=== PATIENT | female | born 1940 | race Caucasian/White ===

== ENCOUNTER 2016-11-22 21:20 | Inpatient (IN) | payer MEDICAID, MEDICARE ==
[~2016-11-22] VITALS: Ht 162.6 cm; Wt 76.7 kg
[~2016-11-22 21:20] MED LIST: AMARYL2 MG PO; ASPIR 8181 M1 PO; LOPID600 MG PO; MICROZIDE12.5 MG PO
[2016-11-22] MEDS ORDERED: NACL 0.9% 1,000 ML IV ONE (21:30)
--- NOTE | 2016-11-22 21:30 | NUR ---
BIBA TO ER BED 8
[2016-11-22 21:31] VITALS: BP 160/93
--- NOTE | 2016-11-22 21:32 | NUR ---
76 Y/O BIBA W/C/O COUGH, AND CONGESTION X 1WK BREATHING TREATMENT WAS GIVEN , FOR TREATMENT AND EVAL FOR POSSIBLE PNA. O2 SAT 92 RA, SLIGHTLY NASAL FLARING. PT PLACED IN O2 2LT, O2 SAT 95 % AFTER PLACED IN 02. PT IN CARDAIAC MONITOR, TORRES DOUGLAS MADE AWARE.
--- NOTE | 2016-11-22 21:58 | NUR ---
Patient being evaluated by physician at bedside.
--- NOTE | 2016-11-22 22:08 | NUR ---
GAVE PT SPUTUM SAMPLE CUP. PROCEDURE EXPLAINED TO PT BY JUD FRANKLIN IN [place]. PT VERBALIZED UNDERSTANDING BUT SHE IS NOT SURE IF SHE WILL BE ABLE TO DO IT. PT SAT IS 97% ON 2 L NC HR 92.
[2016-11-22] MEDS ORDERED: ALBUTEROL SULFATE/IPRATROPIU 3 ML SOL IH ONE (22:10)
--- NOTE | 2016-11-22 23:33 | NUR ---
PT PLACE IN HIGH FLOW NONREBREATHER MASK 15 LT D/T O2 DROPPED TO 82%, LIPS SLIGHTLY CYANOTIC,. PT O2 SAT 94% NOW, ER NOTIFIED.
[2016-11-23] MEDS ORDERED: methylPREDNISolone SS 125 MG in WATER STERILE 2 ML IV ONE (00:10)
[2016-11-23] MEDS ORDERED: NACL 0.9% 1,000 ML IV ONE (00:25)
[2016-11-23] MEDS ORDERED: ONDANSETRON 4 MG/2 ML VIAL IVP PRN (00:25)
[2016-11-23] MEDS ORDERED: ACETAMINOPHEN 325 MG TAB PO PRN (00:25)
[2016-11-23] MEDS ORDERED: DOCUSATE SODIUM 100 MG GELCAP PO PRN (00:25)
[2016-11-23] MEDS ORDERED: MORPHINE SULFATE 2 MG/ML SYR IVP PRN (00:25)
[2016-11-23] MEDS ORDERED: HYDROcodone/APAP 5/325 MG 1 TAB TAB PO PRN (00:25)
[2016-11-23] MEDS ORDERED: ALBUTEROL SULFATE/IPRATROPIU 3 ML SOL IH PRN (00:35)
--- NOTE | 2016-11-23 00:40 | NUR ---
CALLED FOR REPORT BY OSCILLOGRAPH TECHNICIAN TECH NURSE WILL CALL BACK D/T CHRISTINA IN OTHER PT'S ROOM.
--- NOTE | 2016-11-23 00:44 | NUR ---
Patient will be admitted to care of DR CARDENAS. Admited to TELEMETRY. Will go to room 108B. Belongings list completed. Report to JUD KITCHEN.
--- NOTE | 2016-11-23 01:00 | NUR ---
PT TRASFERRED TO TELEMETRY, ROOM 108B. NO S/S OF DISTRESS NOTED DURING TRASFER.
[2016-11-23 01:30] VITALS: BP 155/88
--- NOTE | 2016-11-23 01:40 | NUR ---
RECEIVED PT. MARIANA POST FROM ER AWAKE AND ALERT. WITH CONFUSION. SOMALI SPEAKING. TELEMETRY MONITORING NSR 91 WITH BBB. SKIN CHECKED DONE WITH CHARGE NURSE. NOTED SCAB TO INNER LEFT BUTTOCK. EDEMA TO +1 TO UPPER EXTREMITIES . COUGHING INTERMITTENTLY AND ON NRBM 100 % 02 SAT. DX. OF PNEUMONIA. AFEBRILE. ORIENTED TO CALL LIGHT FOR HELP AND IF WITH DOLOR. BED ALARM ON. NEEDS WILL BE ANTICIPATED AND WILL BE MET. PT. RESIDENT OF SNF. IVF SITE TO RIGHT FA#22 INTACT AND INFUSING WELL , COVERED WITH KERLIZ WRAP RT PT. TRYING TO PULL IT OUT (PER TRANS ROUTER )WITH NS AT 100 ML/H. GOOD BLOOD RETURN.
--- NOTE | 2016-11-23 02:31 | NUR ---
PT. WITH PACEMAKER NOTED TO LEFT UPPER CHEST. PT. OCCASIONALLY REMOVES NRBM. ENCOURAGED TO NOT REMOVE IT. PT. TURNED TO SIDES WITH PILLOW SUPPORT.
[2016-11-23] MEDS ORDERED: LEVOFLOXACIN 500 MG/D5W PREMIX 100 ML IV SCH (03:00)
--- NOTE | 2016-11-23 03:24 | NUR ---
LEVAQUIN IVP 500 MG FIRST DOSE INFUSED ORDERED. PHARMACY VERIFIED ORDER .
[2016-11-23] MEDS: ALBUTEROL SULFATE/IPRATROPIU 3 ML SOL IH SCH ×6 (03:59→22:42)
--- NOTE | 2016-11-23 04:20 | NUR ---
BREATHING TREATMENT BEING GIVEN BY RESPIRATORY THERAPIST. CONFUSED. PT. KEEPS TAKING OUT HER NRBM. ENCOURGED TO NOT TAKE IT OUT IN THAI AND ITALIAN. NOTED PT. CAN TALK IN ITALIAN BUT ANSWERS QUESTIONS IN ITALIAN WITH THAI. NO NOTED ADVERSE REACTION TO LEVAQUIN IV GIVEN.
[2016-11-23 04:33] VITALS: BP 150/87
[2016-11-23] MEDS ORDERED: methylPREDNISolone SS 80 MG in WATER STERILE 1 ML IV SCH (05:00)
--- NOTE | 2016-11-23 07:28 | NUR ---
RECEIVED REPORT FROM NIGHT NURSE, PT IS AAOX3 TURKMEN SPEAKING, ON NON-REBREATHER MASK, IV TO RIGHT HAND 24G INFUSING WELL, NON-PITTING EDEMA TO BUE, PITTING EDEMA TO BLE, SKIN INTACT WITH LEFT INNER BUTTOCK OLD SCAB. INITIAL ASSESSMENT COMPLETED, ALL SAFETY PRECAUTIONS MET, ORINTED PT TO ROOM AND ENVIRONMENT. ALL NEEDS MET. CALL LIGHT WITHIN REACH. WILL CONTINUE TO MONITOR.
--- NOTE | 2016-11-23 07:28 | NUR ---
ENDORSED TO THE NEXT RN FOR CONTINUITY OF CARE. AWAKE AND ALERT WITH CONFUSION. NEW IVF LINE INSERTED TO RIGHT HAND #24 GAUGE. TOLERATED WELL. OLD IVF SITE DISCONTINUED BY PT. TIP INTACT. BREATHING TREATMENT ON GOING AT THIS TIME.
[2016-11-23 08:00] VITALS: BP 148/92
[2016-11-23] MEDS ORDERED: GLIMEPIRIDE 2 MG TAB PO SCH (09:00)
--- NOTE | 2016-11-23 09:10 | NUR ---
RT IN ROOM WITH PT. Addendum: 11/23/16 at 1929 by Gina Gill RN DELETE. WRONG TIME
[2016-11-23] MEDS: LEVOFLOXACIN 500 MG/D5W PREMIX 100 ML IV SCH (09:49)
[2016-11-23] MEDS: LACTOBACILLUS RHAMNOSUS GG 1 EACH CAP PO SCH (09:51)
[2016-11-23] MEDS: ECOTRIN 81 MG TABEC PO SCH (09:51)
[2016-11-23] MEDS: HYDROCHLOROTHIAZIDE 25 MG TAB PO SCH (09:51)
[2016-11-23] MEDS: PANTOPRAZOLE 40 MG TABEC PO SCH (09:51)
[2016-11-23] MEDS: GEMFIBROZIL 600 MG TAB PO SCH ×2 (09:51→21:00)
--- NOTE | 2016-11-23 10:00 | NUR ---
DUE MEDICATION GIVEN, PT CURRENTLY ON OXYMIZER AT 10L. ALL NEEDS MET. CALL LIGHT WITHIN REACH. WILL CONTINUE TO MONITOR.
--- NOTE | 2016-11-23 10:08 | NUR ---
FAXED INITIAL REVIEW TO [facility] [phone] PHONE TERESA [phone]
--- NOTE | 2016-11-23 10:20 | NUR ---
PATIENT HAS BEEN SCREENED AND CATEGORIZED MODERATE NUTRITION RISK. PATIENT WILL BE SEEN WITHIN 3-5 DAYS OF ADMISSION. 11/25/16-11/27/[address]
[2016-11-23 12:00] VITALS: BP 137/63
[2016-11-23] MEDS: methylPREDNISolone SS 125 MG/2 ML VIAL IVP SCH ×2 (12:41→21:00)
--- NOTE | 2016-11-23 12:42 | NUR ---
DUE MEDICATIONS GIVEN, PT CURRENTLY EATING LUNCH. ALL NEEDS MET. CALL LIGHT WITHIN REACH. WILL CONTINUE TO MONITOR.
--- NOTE | 2016-11-23 15:17 | NUR ---
PATIENT ONLY GIVEN DUONEB NO MUCOMYST. PATIENT ON OXYMIZER STABLE NON PRODUCTIVE COUGH. ADVISED RN TO CONTACT DR FOR MUCOMYST TREATMENT
--- NOTE | 2016-11-23 15:25 | NUR ---
CHECKED IN ON PT, ALL NEEDS MET. NO S/S OF RESPIRATORY DISTRESS NOTED. CALL LIGHT WITHIN REACH. WILL CONTINUE TO MONITOR.
[2016-11-23 16:00] VITALS: BP 142/67
[2016-11-23] MEDS: guaiFENesin 600 MG TABER PO PRN (16:35)
--- NOTE | 2016-11-23 18:25 | NUR ---
PT CURRENTLY EATING DINNER, NO S/S OF RESPIRATORY DISTRESS NOTED. CALL LIGHT WITHIN REACH. WILL CONTINUE TO MONITOR.
--- NOTE | 2016-11-23 19:00 | NUR ---
PT TOOK OF OXYMIZER S/S OF SOB, PUT PT BACK ON NON-REBREATHER AND RT WAS CALLED.
--- NOTE | 2016-11-23 19:10 | NUR ---
RT CURRENTLY IN ROOM WITH PT, BREATHING TREATMENT GIVEN, PAGED DR SMITH.
--- NOTE | 2016-11-23 19:31 | NUR ---
ENDORSED PLAN OF CARE TO NIGHT NURSE, PT WAS PUT ON BIPAP.
--- NOTE | 2016-11-23 19:31 | NUR ---
RECEIVED REPORT FROM DAY RN FOR CONTINUITY OF CARE. PATIENT IS A&OX2/3, DISCUSSED PLAN OF CARE WITH PATIENT, REINFORCEMENT NEEDED. SHIFT ASSESSMENT DONE, VS TAKEN. PATIENT IS ON BIPAP, NO RESPIRATORY DISTRESS NOTED SATURATION AT 98%. NO S/S OF PAIN NOTED. IV TO RT HAND 24 GAUGE PATENT AND FLUSHED. PT HAS BLE EDEMA NOTED. SAFETY/ FALL PRECAUTIONS ENFORCED. CALL LIGHT WITHIN REACH. WILL CONTINUE TO MONITOR.
[2016-11-23] MEDS ORDERED: FUROSEMIDE 20 MG/2 ML VIAL IVP SCH (20:55)
[2016-11-23] MEDS: MONTELUKAST SODIUM 10 MG TAB PO SCH (21:10)
[2016-11-23] MEDS ORDERED: LACTULOSE 20 GM/30 ML UDC PO ONE (21:10)
[2016-11-23] MEDS: LORATADINE 10 MG TAB PO SCH (21:10)
[2016-11-23] MEDS ORDERED: FAMOTIDINE 20 MG TAB PO SCH (21:10)
[2016-11-23] MEDS ORDERED: DEXTROSE 50% 50 ML SYR IVP PRN (21:20)
--- NOTE | 2016-11-23 21:45 | NUR ---
PT REMOVING BIPAP, EDUCATED PT BUT STILL REFUSED, ALSO REFUSING OXYMIZER, O2 SAT 87%, RT PAGED. SPOKE TO DR. PAULINO MD AWARE.
[2016-11-23] MEDS: LORazepam 2 MG/ML VIAL IVP PRN (23:17)
--- NOTE | 2016-11-23 23:28 | NUR ---
SPOKE TO DR. BOB REGARDING PT CONDITION, REMOVING BIPAP AND DESATURATION, ORDERS RECEIVED WILL FOLLOW OUT. WILL CONTINUE TO MONITOR PATIENT CLOSELY.
--- NOTE | 2016-11-24 00:20 | NUR ---
VS TAKEN. PATIENT REPOSITIONED AND CHANGED. IV REMAINS INTACT. PT ON BIPAP AT IPAP 12, RATE 12, FIO2 50%. WILL CONTINUE TO MONITOR FREQUENTLY.
--- NOTE | 2016-11-24 02:02 | NUR ---
TURNED AND REPOSITIONED PATIENT. O2 SAT AT 99% ON BIPAP, WILL CONTINUE TO MONITOR.
[2016-11-24] MEDS: ALBUTEROL SULFATE/IPRATROPIU 3 ML SOL IH SCH ×6 (03:07→23:27)
[2016-11-24 04:00] VITALS: BP 149/82
--- NOTE | 2016-11-24 04:10 | NUR ---
TURNED AND REPOSITIONED PATIENT. CHANGED LINENS AND GOWN, TOLERATED FAIR. O2 SAT AT 95% ON BIPAP. WILL CONTINUE TO MONITOR.
[2016-11-24] MEDS ORDERED: methylPREDNISolone SS 40 MG in WATER STERILE 1 ML IM SCH (05:00)
[2016-11-24] MEDS: methylPREDNISolone SS 40 MG/ML VIAL IVP SCH ×3 (05:45→20:48)
[2016-11-24] MEDS: BLOOD GLUCOSE MONITORING 1 DEV DEV FS SCH ×4 (06:04→20:52)
[2016-11-24] MEDS: INSULIN LISPRO SLIDING SCALE 100 UNITS/ML VIAL SUBQ PRN ×4 (06:04→20:53)
--- NOTE | 2016-11-24 06:05 | NUR ---
BLOOD SUGAR 294, ADMINISTERED INSULIN PER MD ORDER. WILL CONTINUE TO MONITOR.
[2016-11-24 07:26] VITALS: BP 0/0
--- NOTE | 2016-11-24 07:26 | NUR ---
RECEIVED ON A Rheonix V60 BIPAP PLUGGED INTO RED OUTLET TO A LARGE FACIAL MASK SECURED WITH HEAD STRAP LOC AWAKE AND ALERT TOLERATING WELL WITHOUT INCIDENT
--- NOTE | 2016-11-24 07:46 | NUR ---
ENDORSED PATIENT TO DAY RN FOR CONTINUITY OF CARE, PATIENT IS IN STABLE CONDITION.
--- NOTE | 2016-11-24 07:50 | NUR ---
RECEIVED REPORT FROM JUD ABBOTT. PT A/OX2, PT IS ON HAND RESTRAINTS AT THIS TIME, PT TRIES TO TAKE OFF OXYGEN MASK AND OTHER EQUIPMENT, PT HAS IV ON THE LEFT HAND, PATENT, INTACT, FLUSHING WELL, PT HAS SOME REDNESS ON THE LEFT BUTTOCKS, PT IS ON NON RE BREATHER MASK AT THIS TIME, RT IS AT BEDSIDE, DISCUSSED PLAN OF CARE WITH PT, PT UNABLE TO COMPREHEND, SAFETY/FALL PRECAUTIONS ARE IN PLACE, CALL LIGHT WITHIN REACH, WILL CONTINUE TO MONITOR.
[2016-11-24 08:00] VITALS: BP 159/82
--- NOTE | 2016-11-24 08:05 | NUR ---
OFF BIPAP FOR AM FOOD TRAY WITH ANGELITO/MANAGER CLINIC ANGLE BENDER AND MANAGER CLINIC TO MONITOR SOB AND SATURATION MANAGER CLINIC TO USE INTERMITTENT SUPPLEMENTAL OXYGEN AT 15 LPM VIA NON REBREATHER
[2016-11-24] MEDS: LEVOFLOXACIN 500 MG/D5W PREMIX 100 ML IV SCH (09:25)
[2016-11-24] MEDS: LORATADINE 10 MG TAB PO SCH (09:26)
[2016-11-24] MEDS: ECOTRIN 81 MG TABEC PO SCH (09:26)
[2016-11-24] MEDS: LACTOBACILLUS RHAMNOSUS GG 1 EACH CAP PO SCH (09:27)
[2016-11-24] MEDS: LOSARTAN 50 MG TAB PO SCH (09:27)
[2016-11-24] MEDS: DOCUSATE SODIUM 100 MG GELCAP PO SCH ×2 (09:27→20:49)
[2016-11-24] MEDS: GEMFIBROZIL 600 MG TAB PO SCH ×2 (09:28→20:49)
[2016-11-24] MEDS: FUROSEMIDE 40 MG TAB PO SCH (09:28)
[2016-11-24] MEDS: HYDROCHLOROTHIAZIDE 25 MG TAB PO SCH (09:28)
[2016-11-24] MEDS: PANTOPRAZOLE 40 MG TABEC PO SCH (09:29)
--- NOTE | 2016-11-24 09:50 | NUR ---
PT IS RESTING IN BED AT THIS TIME, NO S/S OF RESPIRATORY DISTRESS OR DISCOMFORT NOTED, CALL LIGHT WITHIN REACH WILL CONTINUE TO MONITOR.
--- NOTE | 2016-11-24 09:55 | NUR ---
FILOMENA AT BEDSIDE FOR PATIENT PHYSICAL HYGIENE AND REPOSITION TOLERATING OFF BIPAP TO MASK ON SUPPLEMENTAL OXYGEN AT 15 LPM VIA NON REBREATHER SATURATION 100% HR 89 RR 20-24
--- NOTE | 2016-11-24 10:10 | NUR ---
LOC AWAKE AND ALERT NAMIBIAN SPEAKING EXPLANATION OF NASOTRACHEAL PROCEDURE VIA ANGELITO/POWDER PRESS OPERATOR WITH PATIENT ACKNOWLEDGEMENT
--- NOTE | 2016-11-24 10:25 | NUR ---
CORRIDOR REDEVELOPMENT MANAGER AT BEDSIDE PATIENT PRESENTING WITH OCCASIONAL COUGHING NO SOB NOTED CHINESE TEACHER TO ATTEMPT SPUTUM COLLECTION ORDER, SUPPLEMENTAL OXYGEN TITRATION AND HHN THERAPY AT A LATER TIME [facility] V60 BIPAP AT BEDSIDE
--- NOTE | 2016-11-24 10:45 | NUR ---
FAXED CONCURRENT REVIEW TO [facility] [phone] TERESA [phone] Addendum: 11/24/16 at 1130 by Lani Hedrick CM COVERING FOR TERESA BABB, ALPHONSO [phone]
[2016-11-24 12:00] VITALS: BP 149/64
--- NOTE | 2016-11-24 12:00 | NUR ---
NASOTRACHEAL PROCEDURE FOR SPUTUM COLLECTION ORDERED LOC AWAKE AND ALERT IN HFW POSITION PRE AND POST SUCTIONING USING HYPEROXYGENATION WITH SUPPLEMENTAL OXYGEN AT 15 LPM VIA NON REBREATHER APPLYING STERILE TECHNIQUE MEDLINE EZ LUBRICATION APPLIED TO PROXIMAL END OF A 14FR SUCTION CATHETER INSERTED INTO LEFT NARES X2 OBTAINED LARGE THICK YELLOW SECRETION WITH BLOOD TOLERATED PROCEDURE WELL WITHOUT INCIDENT
--- NOTE | 2016-11-24 12:00 | NUR ---
PT IS SITTING IN BED AT THIS TIME, WATCHING TV, CALL LIGHT WITHIN REACH, WILL CONTINUE TO MONITOR.
--- NOTE | 2016-11-24 12:19 | NUR ---
POST HHN THERAPY PLACED BACK ON SUPPLEMENTAL OXYGEN AT 15 LPM VIA NON REBREATHER ANGELITO/MENTAL HEALTH PROGRAM SPECIALIST AT BEDSIDE FOR LUNCH TRAY ORAL FEEDING
--- NOTE | 2016-11-24 13:50 | NUR ---
ORDERED ROUTINE ABG DRAWN SITE AT RIGHT BRACHIAL TOLERATED WELL WITHOUT INCIDENT
--- NOTE | 2016-11-24 14:00 | NUR ---
PT IS RESTING BED, PT HAS NON RE BREATHER MASK, PT IS OFF RESTRAINTS AT THIS TIME, TOLERATING WELL, CALL LIGHT IS WITHIN REACH, WILL CONTINUE TO MONITOR.
--- NOTE | 2016-11-24 14:18 | NUR ---
* ST NOTE * Pt seen at bedside with caregiver/Nsg and RT present. Bedside Dysphagia exam and oral mechanism exam completed. See evaluation report for further details. Pt tolerating 3/3 alternating PO trials of mechanical soft fruit via a teaspoon w/out s/s of aspiration, but exhibiting pocketing of bolus during and after PO intake. Pt and caregiver/Nsg education completed regarding safe swallow compensatory strategies pt and caregivers/staff could employ to aid pt with swallow function as well as to clear oral cavity of pocketed food/residue during and after PO intake, with pt and caregiver/Nsg agreeable with and verbalizing understanding of clinician's recommendations. Lastly pt tolerating 3/3 alternating PO trials of thin liquid water via a straw w/out s/s of aspiration. It is thus recommended pt's PO diet consistency be modified to Mechanical soft-ground textures with thin liquids for all meals, requiring close supervision during PO intake by caregivers/staff to assure aspiration precautions are in place 2/2 to pt's hx of PNA. No further ST follow up recommended at this time. Pt, caregiver/Nsg and RT education completed regarding results of evaluation; benefits of abiding by aspiration precautions and recommended PO diet consistency and prognosis for improvement; with pt, caregiver/nsg and RT agreeable with and verbalizing understanding of clinician's recommendations. Recommend: - PO diet consistency of Mechanical soft-ground textures with thin liquids for all meals - Close supervision during PO intake by caregivers/staff to assure aspiration precautions are in place 2/2 to pt's hx of PNA - Pt requires assistance with feeding No further ST follow up recommended at this time. G8996 G8997 CI G8998 NOMS Level 2 Time In/Out 13:35 - 17:20 Addendum: 11/24/16 at [address] Time In/Out: 13:35 - 14:20*
--- NOTE | 2016-11-24 14:37 | NUR ---
CALLED THE PATIENT'S [facility] FAC[facility], SPOKE TO GENIE TOLD HER I WAS CALLING TO GET INFORMATION ON THE PATIENT'S PACEMAKER BECAUSE THE DOCTOR HAD ORDERED FOR THE PATIENT'S PACEMAKER TO ME INTERROGATED, GENIE TOLD ME [facility] HAIR, PHONE NUMBER [phone].
--- NOTE | 2016-11-24 14:38 | NUR ---
PER ALPHONSO FROM [facility], X [phone] IF PATIENT DISCHARGED, FOR TRANSPORT USE [employer] [phone]
--- NOTE | 2016-11-24 14:50 | NUR ---
I CALLED THE PACEMAKER CLINIC WITH DR. HAIR, I LET THEM KNOW I WAS CALLING FROM [facility] AND I WAS REQUESTING INFORMATION ON THE PATIENT'S PACEMAKER, I WAS TOLD THEY COULD NOT FIND THE PATIENT IN THEIR SYSTEM AND THAT THEY WOULD GIVE ME A CALL BACK ONCE THEY FOUND OUT IF THAT WAS THEIR PATIENT OR NOT, I GAVE THE PHONE NUMBER TO THE NURSES STATION AND MY EXTENSION.
[2016-11-24] MEDS: LORazepam 2 MG/ML VIAL IVP PRN (15:07)
--- NOTE | 2016-11-24 15:23 | NUR ---
SATURATION 100% ON SUPPLEMENTAL OXYGEN AT 15 LPM VIA NON REBREATHER TITRATED OXYGEN DEVICE TO VENTI MASK AT 50%/15 LPM MARCELO NOTIFIED Addendum: 11/24/16 at 1528 by Arsenio Llanes RT VETERANS' COORDINATOR TO MONITOR
--- NOTE | 2016-11-24 15:48 | NUR ---
NASOTRACHEAL SUCTIONING PRE AND POST SUCTIONING HYPEROXYGENATION VIA NON REBREATHER AT 15 LPM USING STERILE TECHNIQUE APPLIED MEDLINE EZ LUBRICANT TO PROXIMAL END OF 14FR SUCTION CATHETER INSERTED INTO RIGHT AND LEFT NARES OBTAINED LARGE THICK YELLOW WITH BLOODY SECRETIONS TOLERATED PROCEDURE WELL
--- NOTE | 2016-11-24 15:55 | NUR ---
HHN THERAPY GIVEN POST NASOTRACHEAL SUCTIONING
[2016-11-24 16:00] VITALS: BP 146/69
--- NOTE | 2016-11-24 16:00 | NUR ---
PT IS SLEEPING IN BED, NO S/S OF RESPIRATORY DISTRESS OR DISCOMFORT NOTED, CALL LIGHT IS WITHIN REACH, WILL CONTINUE TO MONITOR.
[2016-11-24] MEDS: MONTELUKAST SODIUM 10 MG TAB PO SCH (17:10)
--- NOTE | 2016-11-24 18:00 | NUR ---
HELPED ANGELITO ALANIS TURN AND CHANGE THE PT, PT TOLERATED WELL, CALL LIGHT WITHIN REACH, WILL CONTINUE TO MONITOR.
--- NOTE | 2016-11-24 19:20 | NUR ---
PT ENDORSED TO JUD WANG. FOR CONTINUITY OF CARE. PT STABLE AT THIS TIME, RT IS AT BEDSIDE.
--- NOTE | 2016-11-24 19:21 | NUR ---
RECEIVED PT IN STABLE CONDITION FROM JUD LINDER. NO SOB, NO SIGNS OF DISTRESS. PT IS AOX1, MOANS WHEN NAME CALLED. VS STABLE. PT ON VENTURI MASK AT 15LPM, TOLERATING WELL. PT CALM AND COOPERATIVE, NOT ON RESTRAINTS AT THIS TIME. PT WITH REDNESS TO LT INNER BUTTOCK. IV TO RT HAND 24G PATENT, ASYMPTOMATIC, INTACT, SALINE LOCKED. PT WITH BUE AND BLE EDEMA, BLE 1+ PITTING. PACEMAKER NOTED TO LT CHEST, PACEMAKER TO BE INTERROGATED, NO CALL BACK FROM PACEMAKER CLINIC, TODAY, WILL CALL AND LEAVE MESAGE WELL ENDORSE TO AM SHIFT TO FOLLOW UP DURING BUSINESS HOURS. FLACC 0. PT LETHARGIC. PLAN OF CARE DISCUSSED WITH PT. SAFETY MEASURES IN PLACE, HOB ELEVATED TO 30 DEGREES. CALL LIGHT WITHIN REACH. WILL CONTINUE TO MONITOR.
--- NOTE | 2016-11-24 19:30 | NUR ---
RT BARNEY NOTIFIED THAT SPUTUM SAMPLE IS NEEDED AGAIN SINCE LAST WAS CONTAMINATED, BARNEY VERBALIZED UNDERSTANDING AND STATED WE WILL TRY IN AM SINCE PT IS DRY AT THIS TIME.
[2016-11-24 20:00] VITALS: BP 107/51
--- NOTE | 2016-11-24 20:53 | NUR ---
PT TOLERATED DUE MEDS WELL CRUSHED IN SOFT FOODS. NO SOB, NO SIGNS OF DISTRESS. IV SITE ASYMPTOMATIC, INTACT, PATENT, SALINE LOCKED. BLOOD SUGAR 202, GAVE INSULIN PER MD ORDER. PT TOLERATED WELL. FLACC 0. PLAN OF CARE DISCUSSED WITH PT. SAFETY MEASURES IN PLACE. CALL LIGHT WITHIN REACH. WILL CONTINUE TO MONITOR.
--- NOTE | 2016-11-24 22:35 | NUR ---
PT ASLEEP IN BED. NO SOB, NO SIGNS OF DISTRESS. PT ON 15LPM VENTURI MASK, TOLERATING WELL. IV SITE ASYMPTOMATIC, INTACT, SALINE LOCKED. SAFETY MEASURES IN PLACE. CALL LIGHT WITHIN REACH. WILL CONTINUE TO MONITOR.
[2016-11-25] VITALS (7 sets, daily range): BP systolic 116–152; BP diastolic 48–84
--- NOTE | 2016-11-25 02:51 | NUR ---
PT ASLEEP IN BED. NO SOB, NO SIGNS OF DISTRESS. PT ON 15 LPM VENTURI MASK. IV SITE ASYMPTOMATIC, INTACT, PATENT, SALINE LOCKED. FLACC 0. SAFETY MEASURES IN PLACE. CALL LIGHT WITHIN REACH. WILL CONTINUE TO MONITOR.
[2016-11-25] MEDS: ALBUTEROL SULFATE/IPRATROPIU 3 ML SOL IH SCH ×6 (03:23→23:44)
--- NOTE | 2016-11-25 04:13 | NUR ---
VS STABLE. NO SOB, NO SIGNS OF DISTRESS. PT ON 15LPM VENTURI MASK. IV SITE ASYMPTOMATIC, INTACT, SALINE LOCKED. FLACC 0. PLAN OF CARE DISCUSSED WITH PT. SAFETY MEASURES IN PLACE. CALL LIGHT WITHIN REACH. WILL CONTINUE TO MONITOR.
[2016-11-25] MEDS: methylPREDNISolone SS 40 MG/ML VIAL IVP SCH ×3 (04:25→21:02)
[2016-11-25] MEDS: BLOOD GLUCOSE MONITORING 1 DEV DEV FS SCH ×4 (06:19→21:30)
[2016-11-25] MEDS: INSULIN LISPRO SLIDING SCALE 100 UNITS/ML VIAL SUBQ PRN ×4 (06:20→21:37)
--- NOTE | 2016-11-25 07:04 | NUR ---
BIPAP STBY, 50% VENTURI MASK RR-16, HR- 62, SAO2- 99%, NO SIGNS OF RESPIRATORY DISTRESS NOTED
--- NOTE | 2016-11-25 07:38 | NUR ---
ENDORSED PT IN STABLE CONDITION TO JUD PENA. ALL NEEDS HAVE BEEN MET AT THIS TIME.
--- NOTE | 2016-11-25 07:39 | NUR ---
PT ALERT AND ORIENTED X1, NO SIGNS OF ACUTE DISTRESS, BREATHING EVEN AND UNLABORED BILATERALLY, BOWEL SOUNDS ACTIVE IN ALL FOUR QUADRANTS, ABDOMEN DISTENDED, BOWEL AND BLADDER INCONTINENCE, CONTRACTED INWARD BILATERAL LOWER EXTREMITIES, EDEMATOUS BILATERAL LOWER EXTREMITIES +1 PITTING, BILATERAL UPPER LOWER EXTREMITIES +1 NON-PITTING, BEDREST, IV PATENT AND INFUSING NO REDNESS, BED IN LOW POSITION WITH BILATERAL HALF SIDE RAILS UP, CALL LIGHT WITHIN REACH.
--- NOTE | 2016-11-25 07:39 | NUR ---
PATIENT IS NOT CURRENTLY IN RESTRAINTS, ONLY WEARING SOFT MITTENS.
--- NOTE | 2016-11-25 09:00 | NUR ---
SPOKE WITH RESPIRATORY THERAPISTS SHILPA AT THE BEDSIDE AND MADE AWARE REGARDING TO RE-INDUCE SPUTUM COLLECTION, THE PREVIOUS SPUTUM COLLECTED WAS CONTAMINATED. RT STATED THEY WILL RECOLLECT IT.
[2016-11-25] MEDS: DOCUSATE SODIUM 100 MG GELCAP PO SCH ×2 (09:50→21:02)
[2016-11-25] MEDS: ECOTRIN 81 MG TABEC PO SCH (09:50)
[2016-11-25] MEDS: LACTOBACILLUS RHAMNOSUS GG 1 EACH CAP PO SCH (09:51)
[2016-11-25] MEDS: GEMFIBROZIL 600 MG TAB PO SCH ×2 (09:51→21:02)
[2016-11-25] MEDS: LORATADINE 10 MG TAB PO SCH (09:51)
[2016-11-25] MEDS: LOSARTAN 50 MG TAB PO SCH (09:51)
[2016-11-25] MEDS: PANTOPRAZOLE 40 MG TABEC PO SCH (09:51)
[2016-11-25] MEDS: HYDROCHLOROTHIAZIDE 25 MG TAB PO SCH (09:52)
[2016-11-25] MEDS: LEVOFLOXACIN 500 MG/D5W PREMIX 100 ML IV SCH (09:52)
[2016-11-25] MEDS: FUROSEMIDE 40 MG TAB PO SCH (09:52)
--- NOTE | 2016-11-25 11:00 | NUR ---
TELE MONITOR BOX REMOVED, PATIENT STATUS IS MED SURG.
[2016-11-25] MEDS ORDERED: POTASSIUM CHLORIDE 10 MEQ TABER PO SCH (12:00)
[2016-11-25] MEDS ORDERED: POTASSIUM CHLORIDE 20% 40 MEQ/15 ML UDC PO SCH (12:00)
--- NOTE | 2016-11-25 15:27 | NUR ---
CALLED [facility] ([phone]) REGARDING PT'S PREVIOUS ORDER FOR PACE MAKER INTERROGATION, STATED THEY CAN NOT FIND PT IN THEIR SYSTEM AT THIS TIME, IT IS BETTER TO CALL WHEN MEDICAL RECORD OPENS ON DAYS. DR. OZUNA AND TENSIONING MACHINE OPERATOR NURSE NOTIFIED. Addendum: 11/25/16 at 1900 by Mary Greenfield RN PER PREVIOUS ENDORSEMENT, PT'S PACE MAKER WAS PLACED IN [place].
[2016-11-25] MEDS: MONTELUKAST SODIUM 10 MG TAB PO SCH (17:47)
--- NOTE | 2016-11-25 19:35 | NUR ---
PT ALERT AND AWAKE, NO SIGNS OF ACUTE DISTRESS, BED IN LOW POSITION WITH BILATERAL HALF SIDE RAILS UP, CALL LIGHT WITHIN REACH, ENDORSED TO CARE MGR NURSE FOR CONTINUITY OF CARE.
--- NOTE | 2016-11-25 20:00 | NUR ---
RECEIVED AWAKE,ALERT,CONFUSED. AFEBRILE, NOT IN ACUTE DISTRESS. NO PAIN OR DISCOMFORT NOTED. SAO2= 94% ON O2 @ 3 LPM VIA NC. HEPLOCK TO THE RIGHT HAND GAUGE 24 INTACT. VS STABLE, WILL CONTINUE TO MONITOR. NEEDS ATTENDED.
[2016-11-25] MEDS ORDERED: SIMVASTATIN 10 MG TAB PO SCH (21:00)
--- NOTE | 2016-11-25 21:02 | NUR ---
DUE MEDICATIONS GIVEN.
--- NOTE | 2016-11-25 21:37 | NUR ---
2 UNITS OF HUMALOG SQ GIVEN FOR WS=940 PER SLIDING SCALE.
[2016-11-26] VITALS: BP 155/78
--- NOTE | 2016-11-26 | NUR ---
AWAKE,NOT IN ANY KIND OF DISTRESS. NO PAIN OR DISCOMFORT NOTED. SIDE RAILS UP,CALL LIGHT WITHIN REACH. KEPT WARM AND COMFORTABLE. VS REMAIN STABLE.
[2016-11-26] MEDS: ALBUTEROL SULFATE/IPRATROPIU 3 ML SOL IH SCH ×6 (03:31→23:14)
[2016-11-26 04:00] VITALS: BP 160/81
--- NOTE | 2016-11-26 04:00 | NUR ---
AWAKE,NOT IN ANY KIND OF DISTRESS. NO PAIN OR DISCOMFORT NOTED. HI=265/81. OTHERWISE STABLE. WILL CONTINUE TO MONITOR.
[2016-11-26] MEDS: methylPREDNISolone SS 40 MG/ML VIAL IVP SCH ×3 (04:53→21:00)
[2016-11-26] MEDS: BLOOD GLUCOSE MONITORING 1 DEV DEV FS SCH ×4 (06:09→21:52)
[2016-11-26] MEDS: INSULIN LISPRO SLIDING SCALE 100 UNITS/ML VIAL SUBQ PRN ×4 (06:20→21:54)
--- NOTE | 2016-11-26 06:20 | NUR ---
XVIOECYKJ=816. 2 UNITS OF HUMALOG SQ GIVEN PER SLIDING SCALE.
--- NOTE | 2016-11-26 07:20 | NUR ---
ENDORSED CARE TO MEHRAN RENNER.
--- NOTE | 2016-11-26 07:21 | NUR ---
PT AWAKE AND ALERT X1 TO SELF ONLY WITH CONFUSION, PERRLA, NO SIGNS OF ACUTE DISTRESS, BREATHING EVEN AND UNLABORED BILATERALLY, BOWEL SOUNDS ACTIVE IN ALL FOUR QUADRANTS, ABDOMEN ROUND AND DISTENDED, FLACC =0, BEDREST, SKIN INTACT WITH REDNESS ON INNER LEFT BUTTOCK, BOWEL AND BLADDER INCONTINENCE, LEGS CONTRACTED INWARD, BED IN LOW POSITION WITH ALARM ON AND BILATERAL HALF SIDE RAILS UP, CALL LIGHT WITHIN REACH.
[2016-11-26 08:00] VITALS: BP 138/81
[2016-11-26] MEDS: ECOTRIN 81 MG TABEC PO SCH (09:48)
[2016-11-26] MEDS: GEMFIBROZIL 600 MG TAB PO SCH ×2 (09:48→21:44)
[2016-11-26] MEDS: LORATADINE 10 MG TAB PO SCH (09:48)
[2016-11-26] MEDS: LACTOBACILLUS RHAMNOSUS GG 1 EACH CAP PO SCH (09:49)
[2016-11-26] MEDS: DOCUSATE SODIUM 100 MG GELCAP PO SCH ×2 (09:49→21:44)
[2016-11-26] MEDS: HYDROCHLOROTHIAZIDE 25 MG TAB PO SCH (09:49)
[2016-11-26] MEDS: PANTOPRAZOLE 40 MG TABEC PO SCH (09:49)
[2016-11-26] MEDS: FUROSEMIDE 40 MG TAB PO SCH (09:49)
[2016-11-26] MEDS: guaiFENesin 600 MG TABER PO PRN ×2 (09:49→21:46)
[2016-11-26] MEDS: LEVOFLOXACIN 500 MG/D5W PREMIX 100 ML IV SCH (09:50)
[2016-11-26] MEDS: LOSARTAN 50 MG TAB PO SCH (09:50)
[2016-11-26 12:00] VITALS: BP 144/94
--- NOTE | 2016-11-26 12:58 | NUR ---
REPORTED CRITICAL LAB VALUE PLT. 765 TO MD, TRENDING DOWN, NO NEW ORDERS PER MD.
[2016-11-26 16:00] VITALS: BP 141/93
--- NOTE | 2016-11-26 16:07 | NUR ---
SPOKE W/ NIYAH (ADMISSIONS) FROM [facility] REGARDING PT'S PNA VACCINE RECORD, STATED TO CALL BACK ([phone]) DURING MEDICAL RECORDS OFFICE HOURS SUNDAY THRU SUNDAY.
[2016-11-26] MEDS: NACL 0.9% 1,000 ML IV SCH (16:47)
[2016-11-26] MEDS: MONTELUKAST SODIUM 10 MG TAB PO SCH (17:45)
--- NOTE | 2016-11-26 19:39 | NUR ---
PT AWAKE AND ALERT, NO SIGNS OF ACUTE DISTRESS, ENDORSED TO RUBBER COMPOUNDER MIXER NURSE FOR CONTINUITY OF CARE.
--- NOTE | 2016-11-26 19:40 | NUR ---
RECD. RESTING IN BED, AWAKE, A/OX1, CONFUSED. RESPIRATION EVEN AND UNLABORED. ON 02 AT 3 LITERS VIA N/C, SATURATION 93 %. IV OF NS AT 50 ML/HR INFUSING, RIGHT HAND G. 24. WITH PITTING EDEMA, 2+ ON BILATERAL FEET ELEVATED ON PILLOWS. REORIENTED TO HOSPITAL SETTING, PLAN OF CARE FOR THE NIGHT DISCUSSED. NEEDS REINFORCEMENT. NO APPEARANCE OF PAIN NOTED 0/10.
[2016-11-26 20:00] VITALS: BP 147/78
--- NOTE | 2016-11-26 20:00 | NUR ---
Patient's Plan of Care was discussed and reviewed with FAMILY MANAGER: DOUGLAS Adkins
--- NOTE | 2016-11-26 20:33 | NUR ---
TOOK OUT HER MITTENS. IV INFILTRATED. WILL INSERT A NEW IV LINE.
--- NOTE | 2016-11-26 20:50 | NUR ---
WITH PERSISTENT COUGH, MEDICATED WITH ROBITUSSIN ORDERED.
--- NOTE | 2016-11-26 21:46 | NUR ---
WITH PERSISTENT UNPRODUCTIVE COUGHING NOTED, MEDICATED WITH MUCINEX WITH APPLE SAUCE. TOLERATED WELL.
--- NOTE | 2016-11-26 23:00 | NUR ---
RT GAVE BREATHING TREATMENT, BUT STILL PATIENT KEEP ON COUGHING.
[2016-11-27] VITALS: BP 144/81
--- NOTE | 2016-11-27 | NUR ---
STILL AWAKE IN BED, NO SOB NOTED.
[2016-11-27] MEDS: LORazepam 2 MG/ML VIAL IVP PRN (03:02)
--- NOTE | 2016-11-27 03:02 | NUR ---
WITH AGITATION, MEDICATED WITH ATIVAN ORDERED BY JUD ABBOTT.
[2016-11-27] MEDS: ALBUTEROL SULFATE/IPRATROPIU 3 ML SOL IH SCH ×6 (03:09→23:10)
--- NOTE | 2016-11-27 03:35 | NUR ---
NO AGITATION, SLEEPING COMFORTABLY IN BED. 02 SAT - 93-96%.
[2016-11-27] MEDS: methylPREDNISolone SS 40 MG/ML VIAL IVP SCH ×3 (05:39→20:46)
[2016-11-27] MEDS: NACL 0.9% 1,000 ML IV SCH ×2 (05:49→09:25)
[2016-11-27] MEDS: BLOOD GLUCOSE MONITORING 1 DEV DEV FS SCH ×4 (06:12→20:53)
--- NOTE | 2016-11-27 07:00 | NUR ---
CONDITION REMAIN STABLE. STILL SLEEPING IN BED, RESPIRATION EVEN AND UNLABORED.
--- NOTE | 2016-11-27 07:20 | NUR ---
ENDORSED TO DEACON/CISCO RNs FOR CONTINUITY OF CARE.
--- NOTE | 2016-11-27 07:22 | NUR ---
RECEIVED REPORT FROM MANAGER SOCIAL NURSE AT BEDSIDE FOR CONTINUITY OF CARE. PT IS AWAKE, A&OX2. PT HAS IV IN R HAND 24 G. SHE IS ON O2 NC 2L, O2 SAT 92%. PT HAS A COUGH. INTRODUCED OURSELVES AND UPDATED THE BOARD. REORIENTED PT TO USE CALL LIGHT WHEN SHE NEEDS HELP. WILL MONITOR PT FREQUENTLY.
[2016-11-27 08:00] VITALS: BP 130/81
--- NOTE | 2016-11-27 09:20 | NUR ---
ADMINISTERED MORNING ORAL MEDICATIONS IN APPLE SAUCE. PT TOLERATED WELL. LUNG SOUNDS COARSE ON BOTH INSPIRATION AND EXPIRATION. PT DENIES PAIN AT THIS TIME. WILL CONTINUE TO MONITOR.
[2016-11-27] MEDS: LEVOFLOXACIN 500 MG/D5W PREMIX 100 ML IV SCH (09:21)
[2016-11-27] MEDS: PANTOPRAZOLE 40 MG TABEC PO SCH (09:22)
[2016-11-27] MEDS: GEMFIBROZIL 600 MG TAB PO SCH ×2 (09:22→20:45)
[2016-11-27] MEDS: HYDROCHLOROTHIAZIDE 25 MG TAB PO SCH (09:23)
[2016-11-27] MEDS: DOCUSATE SODIUM 100 MG GELCAP PO SCH ×2 (09:23→20:46)
[2016-11-27] MEDS: LORATADINE 10 MG TAB PO SCH (09:23)
[2016-11-27] MEDS: LACTOBACILLUS RHAMNOSUS GG 1 EACH CAP PO SCH (09:23)
[2016-11-27] MEDS: LOSARTAN 50 MG TAB PO SCH (09:24)
[2016-11-27] MEDS: ECOTRIN 81 MG TABEC PO SCH (09:24)
[2016-11-27] MEDS: FUROSEMIDE 40 MG TAB PO SCH (09:24)
--- NOTE | 2016-11-27 10:20 | NUR ---
GAVE PT A BED BATH, PT HAS ELIZABETH REDNESS, REPOSITIONED PT. PT TOLERATED WELL. PT DENIES PAIN AT THIS TIME. WILL CONTINUE TO MONITOR.
--- NOTE | 2016-11-27 11:15 | NUR ---
PT SUCTIONED OBTAINED MODERATE AMOUNT OF THICK BLOOD TINGED SECRETIONS. PT TOLERATED PROCEDURE WELL, VITAL SIGNS REMAINED NORMAL.
[2016-11-27] MEDS: INSULIN LISPRO SLIDING SCALE 100 UNITS/ML VIAL SUBQ PRN ×3 (12:22→20:55)
[2016-11-27] MEDS: guaiFENesin 20 MG/ML UDC PO PRN ×2 (12:25→20:50)
--- NOTE | 2016-11-27 13:31 | NUR ---
Clinical review faxed to [facility]. also left message to obtain an Auth. for transfer to [facility] for 3 days antibiotic.
--- NOTE | 2016-11-27 14:08 | NUR ---
PT COMPLAINS OF BEING SOB. RAISED THE HEAD OF BED. CHECKED HER O2 SAT. SHE IS AT 97%. R.T. IS HERE. GAVE HER BREATHING TX. WILL CHANGE NC TO VENTURI MASK FOR BETTER OXYGENATION. IF SHE STILL C/O OF FEELING OF SOB, WILL GIVE HER SOME ATIVAN FOR ANXIETY.
--- NOTE | 2016-11-27 14:10 | NUR ---
SS NOTE: PER [place] FROM [facility] ([phone]), PT CAN GO TO ROOM [address] UNDER DR. Mendez SAMAYOA TOMORROW UPON DISCHARGE. HE ALSO STATED THAT THEY WILL NEED AUTH FROM [facility] FOR PT'S IV LEVAQUIN.
--- NOTE | 2016-11-27 14:20 | NUR ---
PT SUCTIONED OBTAINED MODERATE AMOUNT OF THICK YELLOW SECRETIONS. AIRWAY IS PATENT. PT PLACED ON 30% VENTURI MASK AT THIS TIME. B.S IMPROVED POST SUCTIONING. WILL CONTINUE TO MONITOR.
--- NOTE | 2016-11-27 14:33 | NUR ---
11/27/16 RD INITIAL ASSESSMENT COMPLETED PLEASE REFER TO NUTRITION ASSESSMENT UNDER CARE ACTIVITY FOR ESTIMATED NUTRITIONAL NEEDS. 1. CONTINUE 60 GM CONSISTENT CARBOHYDRATE DIET WITH TEXTURE PER ST RECOMMENDATIONS 2. RD TO FOLLOW-UP 3-5 DAYS; MODERATE RISK KOFI SORIA RD
[2016-11-27 16:00] VITALS: BP 123/79
--- NOTE | 2016-11-27 16:20 | NUR ---
PAGED RT REGARDING PT'S O2 SAT OF 80-82%. RT PUT PT ON BIPAP, O2 SAT IN 90S. WILL CONTINUE TO MONITOR.
--- NOTE | 2016-11-27 16:33 | NUR ---
CALLED TO TELEMETRY UNIT FOR PT DESATURATING. PT COMPLAINING OF SOB AND SATURATION WENT DOWN TO LOW 80'S. SPO2 WOULD NOT RISE ON VENTURI MASK. PT PLACED ON BIPAP AT THIS TIME 04/26,R 12, FIO2 40%. SPO2 NOW 95%. BIPAP ALARMS ARE ON AND FUNCTIONING. BIPAP PLUGGED INTO RED OUTLET. WILL CONTINUE TO MONITOR.
[2016-11-27] MEDS: MONTELUKAST SODIUM 10 MG TAB PO SCH (17:21)
--- NOTE | 2016-11-27 18:03 | NUR ---
RETAIL WIRELESS ASSOCIATE FEEDING PT DINNER. REMOVED THE BIPAP AND PUT IT ON STANDBY. REPLACED BIPAP WITH NC 3L WHILE SHE IS EATING. WILL SWITCH IT OUT ONCE DONE. WILL CONTINUE TO MONITOR PT.
--- NOTE | 2016-11-27 19:07 | NUR ---
PT RECEIVED FROM DAYSHIFT ON NOTED BIPAP SETTINGS. PT AWAKE, RE-ADJUSTED PT'S LARGE FULL FACE MASK TO DECREASE LEAK AND IMPROVE PT COMFORT. PT'S BREATH SOUNDS ARE COARSE/DIMINISHED IN BASES. HHN TX GIVEN VIA INLINE. NO ADVERSE EFFECTS NOTED. BIPAP ALARMS ARE ON AND AUDIBLE. BIPAP PLUGGED INTO RED ELECTRICAL OUTLET. AMBU BAG HANGING ON WALL.
--- NOTE | 2016-11-27 19:16 | NUR ---
ENDORSED PT TO APPLICATIONS SYSTEM ANALYST NURSE AT BEDSIDE. PT IN STABLE CONDITION.
--- NOTE | 2016-11-27 19:17 | NUR ---
RECD. RESTING IN BED, AWAKE, A/OX2, FORGETFUL. NO RESPIRATORY DISTRESS NOTED. ON BIPAP, STILL WITH COARSE LUNG SOUNDS ON BILATERAL LUNG AUSCULTATION, 02 SAT - 94%. ABDOMEN SOFT WITH POSITIVE BOWEL SOUNDS ON ALL QUADRANTS. IV OF NS AT 50 ML/H INFUSING, RIGHT HAND G24. STILL WITH PITTING EDEMA, 2+ ON BILATERAL FEET, ELEVATED ON TWO PILLOWS. PLAN OF CARE FOR THE SHIFT DISCUSSED. VERBALIZED UNDERSTANDING. NO APPEARANCE OF PAIN NOTED 0/10.
--- NOTE | 2016-11-27 19:25 | NUR ---
Patient's Plan of Care was discussed and reviewed with HIGHWAY ENGINEERING TECHNICIAN: JOCELYNE.
--- NOTE | 2016-11-27 21:50 | NUR ---
STILL WITH OCCASIONAL COUGHING. HOB ELEVATED 40 DEGREES FOR EASY BREATHING.
--- NOTE | 2016-11-27 22:30 | NUR ---
RN DOUGLAS CALLED TO SAY PATIENT KEEPS TAKEN BIPAP MASK OFF, PLACED PATIENT ON 40% VENTURI MASK, HR-109, RR-22, SAO2-95% NO RESP DISTRESS NOTED
--- NOTE | 2016-11-27 23:00 | NUR ---
STILL KEEP ON TAKING OFF VENTURI MASK, REORIENTED TO SETTING BUT UNABLE TO UNDERSTAND. O2 SAT - 94%.
[2016-11-28] VITALS: BP 124/66
--- NOTE | 2016-11-28 | NUR ---
INFORMED RT, PATIENT STILL KEEP ON TAKING OF VENTURI MASK. PUT ON NASAL CANNULA AT 3 LITERS, 02 SAT -94%. COMPLAINT OF FEELING VERY WARM, CHECKED TEMPERATURE, 99.3. TAKE OFF EXTRA COVERS, COLD TOWEL ON THE FOREHEAD APPLIED.
--- NOTE | 2016-11-28 01:30 | NUR ---
ALWAYS REQUESTING TO DRINK COLD WATER. REMINDED THAT SHE HAS EDEMA ON BILATERAL LOWER EXTREMITIES AND TOO MUCH WATER IS NOT GOOD FOR HER.
[2016-11-28] MEDS: NACL 0.9% 1,000 ML IV SCH ×2 (02:03→06:30)
[2016-11-28] MEDS: ALBUTEROL SULFATE/IPRATROPIU 3 ML SOL IH SCH ×5 (03:16→19:34)
[2016-11-28] MEDS: methylPREDNISolone SS 40 MG/ML VIAL IVP SCH ×3 (05:00→20:34)
[2016-11-28] MEDS: guaiFENesin 20 MG/ML UDC PO PRN ×3 (05:50→17:55)
--- NOTE | 2016-11-28 05:50 | NUR ---
WITH PERSISTENT COUGHING, MEDICATED WITH ROBITUSSIN ORDERED.
--- NOTE | 2016-11-28 06:50 | NUR ---
DECREASED COUGHING NOTED. WANTS TO SPEAK WITH DAUGHTER, WANTS TO GO HOME. WITH PERIODS OF CONFUSION. [id number] REMAIN STABLE. WILL ENDORSE TO AM NURSE FOR CONTINUITY OF CARE.
[2016-11-28] MEDS: BLOOD GLUCOSE MONITORING 1 DEV DEV FS SCH ×4 (07:04→20:16)
--- NOTE | 2016-11-28 07:05 | NUR ---
RECEIVED PT OFF BIPAP ON 4 L N\C DECREASED TO 3L N/C POST HHN SPO2 94
--- NOTE | 2016-11-28 07:15 | NUR ---
ENDORSED TO Santiago SAAVEDRA FOR CONTINUITY OF CARE.
--- NOTE | 2016-11-28 07:16 | NUR ---
RECEIVED REPORT FROM ULTRASOUND COORDINATOR NURSE AT BEDSIDE. PT IS AWAKE, A&OX2. REINTRODUCED OURSELVES AND UPDATED THE BOARD. PT IS ON NC 3L, O2 SAT 92%. VS WNL. PT HAS IV ON R HAND G 24 RUNNING NS @50ML/HR. PT HAS A COUGH. BL LUNGS SOUNDS COARSE ON BOTH INSPIRATION AND EXPIRATION. CALL LIGHT WITHIN REACH. WILL MONITOR FREQUENTLY.
[2016-11-28 08:00] VITALS: BP 120/76
[2016-11-28] MEDS: GEMFIBROZIL 600 MG TAB PO SCH ×2 (08:44→20:34)
[2016-11-28] MEDS: LACTOBACILLUS RHAMNOSUS GG 1 EACH CAP PO SCH (08:44)
[2016-11-28] MEDS: PANTOPRAZOLE 40 MG TABEC PO SCH (08:44)
[2016-11-28] MEDS: HYDROCHLOROTHIAZIDE 25 MG TAB PO SCH (08:45)
[2016-11-28] MEDS: ECOTRIN 81 MG TABEC PO SCH (08:45)
[2016-11-28] MEDS: LORATADINE 10 MG TAB PO SCH (08:45)
[2016-11-28] MEDS: LOSARTAN 50 MG TAB PO SCH (08:46)
[2016-11-28] MEDS: LEVOFLOXACIN 500 MG/D5W PREMIX 100 ML IV SCH (08:46)
[2016-11-28] MEDS: DOCUSATE SODIUM 100 MG GELCAP PO SCH ×2 (08:46→20:34)
[2016-11-28] MEDS: FUROSEMIDE 40 MG TAB PO SCH (08:46)
--- NOTE | 2016-11-28 08:50 | NUR ---
PASSED MORNING MEDS. CRUSHED, IN APPLE SAUCE. PT TOLERATED WELL. PT ON 3L NC, O2 SAT 97%. DENIES PAIN. WILL CONTINUE TO MONITOR PT.
--- NOTE | 2016-11-28 10:15 | NUR ---
PT COUGHING. ADMINISTERED ROBITUSSIN. PT TOLERATED WELL.
[2016-11-28] MEDS ORDERED: ROBITUSSIN20 MG/1 ML PO (10:35)
[2016-11-28] MEDS ORDERED: LEVAQUIN750 MG PO (10:35)
[2016-11-28] MEDS ORDERED: CULTURELLE10 Billion PO (10:35)
[2016-11-28] MEDS ORDERED: SINGULAIR10 MG PO (10:35)
[2016-11-28] MEDS ORDERED: COZAAR50 M1 PO (10:35)
[2016-11-28] MEDS ORDERED: BLOOD GLUCOSE1 EACH FS (10:35)
[2016-11-28] MEDS ORDERED: HUMALOG SL100 UNITS/ SUBQ (10:35)
[2016-11-28] MEDS ORDERED: CLARITIN10 M1 PO (10:35)
[2016-11-28] MEDS ORDERED: FUROSEMIDE40 M1 PO (10:35)
[2016-11-28] MEDS ORDERED: VENTOLIN H0.09 MG/Ac IH (10:39)
[2016-11-28] MEDS ORDERED: PULMICORT90 MCG/Act IH (10:39)
[2016-11-28] MEDS ORDERED: MEDROL4 MG PO (10:39)
[2016-11-28] MEDS ORDERED: MAGNESIUM OXIDE 400 MG TAB PO SCH (10:54)
--- NOTE | 2016-11-28 11:16 | NUR ---
ORALLY SX PT LG YELLOW PLACED 50 VENTURI PT DESAT SPO2 [id number]
--- NOTE | 2016-11-28 11:41 | NUR ---
FAXED CONCURRENT REVIEW TO JIM FAX [phone] PHONE TERESA [phone]
--- NOTE | 2016-11-28 12:01 | NUR ---
CALLED [facility]. INQUIRY RE TRANSPORTATION FOR PT RETURN TO [facility]. D/C IN PLACE. ONCE TIME HAS BEEN SET, WE WILL GET D/C PROCESS FINISHED, GET PT READY FOR TRANSFER.
[2016-11-28] MEDS: INSULIN LISPRO SLIDING SCALE 100 UNITS/ML VIAL SUBQ PRN ×3 (12:09→20:17)
--- NOTE | 2016-11-28 13:18 | NUR ---
CALLED [facility] FOR TRANSPORT, . SET UP [facility]SP[facility] WITH O2 FOR 4P.Marc ARTHUR RN AWARE. Addendum: 11/28/16 at 1319 by Lani Hedrick CM RESERVATION NUMBER FOR [facility] IS [id number].
--- NOTE | 2016-11-28 13:20 | NUR ---
CALLED MILAGRO MONSIVAIS AND SPOKE WITH ITZ, AND INFORMED HER THAT PATIENT WILL BE [facility].
--- NOTE | 2016-11-28 13:35 | NUR ---
TRANSPORT JUST CALLED. PT WILL BE PICKED UP BY 1500. PT READY. WILL CONTINUE WITH DC PROCESS.
--- NOTE | 2016-11-28 14:40 | NUR ---
CALLED MERCEDES GOODE RN TO GIVE REPORT ON PT. FAXED MEDICATION LIST TO [facility].
[2016-11-28 16:00] VITALS: BP 136/57
--- NOTE | 2016-11-28 17:20 | NUR ---
VS WNL. PT RESTING IN BED COMFORTABLY. 02 SAT 94% WITH 5L NC. NO DISTRESS NOTED. WAITING FOR TRANSPORT. WILL CONTINUE TO MONITOR.
--- NOTE | 2016-11-28 17:28 | NUR ---
PER [place] YODIT, ANOTHER TRANSPORT TEAM WILL BE HERE BY 7PM TO TRANSPORT PT TO [facility]. D/C ALL DONE. WAITING FOR TRANSPORT. PT STABLE IN CONDITION. WILL CONTINUE TO MONITOR PT.
--- NOTE | 2016-11-28 17:52 | NUR ---
ADMINISTERED INSULIN AND ROBITUSSIN FOR COUGH. PT TOLERATED WELL. WILL CONTINUE TO MONITOR.
[2016-11-28] MEDS: MONTELUKAST SODIUM 10 MG TAB PO SCH (17:54)
--- NOTE | 2016-11-28 19:30 | NUR ---
RECEIVED REPORT FROM DEACON RENNER AT BEDSIDE. PT IS ALERT AWAKE ORIENTED X2 WITH CONFUSION. INITIAL ASSESSMENT DONE. NO S/S OF RESPIRATORY DISTRESS OR SOB NOTED. PT IS READY TO BE DISCHARGED BACK TO [facility]. JUST WAITING FOR [facility] TO PICK HER UP. SUPPOSED TO BE PICKED UP BY 1900. DISCHARGED INSTRUCTION GIVEN BUT UNABLE TO COMPREHEND. CALL LIGHT WITHIN REACH. WILL CONTINUE TO MONITOR.
--- NOTE | 2016-11-28 20:55 | NUR ---
[facility] CAME TO PICK-UP PT @ 2039 AND THEY LEFT THE UNIT AROUND 2054. PT IS STABLE DURING THE DISCHARGE.
== END 2016-11-28 20:50 | DRG 279 ==
LOC: MED 21:20 → MTU 11-23 00:30
PROVIDERS: ADMIT Family Medicine; ATTEND Family Medicine
PROC: 5A09357 Assistance with Respiratory Ventilation, Less than 24 Consecutive Hours, Continuous Positive Airway Pressure (ICD-10-PCS; principal; 2016-11-23)
DX: K72.90 Hepatic failure, unspecified without coma (principal); N17.0 Acute kidney failure with tubular necrosis; J96.01 Acute respiratory failure with hypoxia; E43 Unspecified severe protein-calorie malnutrition; J18.9 Pneumonia, unspecified organism; G93.41 Metabolic encephalopathy; E72.20 Disorder of urea cycle metabolism, unspecified; D68.59 Other primary thrombophilia; I42.9 Cardiomyopathy, unspecified; I11.9 Hypertensive heart disease without heart failure; G30.9 Alzheimer's disease, unspecified; F02.81 Dementia in other diseases classified elsewhere, unspecified severity, with behavioral disturbance; J44.0 Chronic obstructive pulmonary disease with (acute) lower respiratory infection; J44.1 Chronic obstructive pulmonary disease with (acute) exacerbation; J20.9 Acute bronchitis, unspecified; E78.2 Mixed hyperlipidemia; E11.9 Type 2 diabetes mellitus without complications; E87.1 Hypo-osmolality and hyponatremia; R13.10 Dysphagia, unspecified; E78.1 Pure hyperglyceridemia; E87.6 Hypokalemia; E66.9 Obesity, unspecified; Z79.82 Long term (current) use of aspirin; Z95.0 Presence of cardiac pacemaker; Z79.899 Other long term (current) drug therapy; Z68.29 Body mass index [BMI] 29.0-29.9, adult; Z56.0 Unemployment, unspecified; Z71.3 Dietary counseling and surveillance

== ENCOUNTER 2018-03-15 21:55 | Inpatient (IN) | payer OTHER, MEDICAID ==
[~2018-03-15] VITALS: Ht 157.5 cm; Wt 54.4 kg
[~2018-03-15 21:55] MED LIST changes: +ALBU0.0912 IH; -AMARYL2 MG PO; +ASPI81EC98 PO; -ASPIR 8181 M1 PO; +BLOO1STR56 FS; +BUDE90PO IH; +FURO40TA9 PO; +GEMF600T5 PO; +GLIM2TAB PO; +HUMSLIDE SUBQ; +HYDR12.516 PO; +LACT10CA PO; +LEVO750T2 PO; -LOPID600 MG PO; +LORA10TA19 PO; +LOSA50TA1 PO; +METH4TAB1 PO; -MICROZIDE12.5 MG PO; +MONT10TA35 PO; +ROB PO
--- NOTE | 2018-03-15 21:55 | NUR ---
Patient ADY MACIAS from [facility], transferred to bed 9. RN evaluating patient at bedside.
[2018-03-15 22:06] VITALS: BP 156/77
--- NOTE | 2018-03-15 22:10 | NUR ---
BIBA. PT CAME IN WITH RASH. PT IS CONFUSED AND IS ALOC. ENGLISH SPEAKING. PT HAS SOME EDEMA TO THE LEFT ARM. PT IS CONTRACTIN ALL EXTREMETIES AND HAS DROPPED FOOT. REDDNESS ON ELBOW AND HAND NO ABRASIONS OR OPEN WOUNDS. SKIN INTACT. SKIN IS PINK/WARM/DRY; AAOX4 WITH EVEN AND STEADY GAIT; LUNGS CLEAR BL; PATIENT STATES PAIN OF 0/10 USING FLACC SCALE AT THIS TIME; VSS; PATIENT POSITIONED FOR COMFORT; HOB ELEVATED; BEDRAILS UP X2; BED DOWN. ER MD MADE AWARE OF PT STATUS.
[2018-03-15] MEDS ORDERED: ZOLP5TAB7 PO (22:15)
[2018-03-15] MEDS ORDERED: FERR325E14 PO (22:15)
[2018-03-15] MEDS ORDERED: SODI325T PO (22:15)
--- NOTE | 2018-03-15 22:20 | NUR ---
Dr. Raymond evaluating patient at bedside.
[2018-03-15] MEDS ORDERED: NACL 0.9% 1,000 ML IV ONE (22:29)
[2018-03-15 23:07] LABS: BASOPHILS % (AUTO) 0.4 % (0.0-2.0); EOSINOPHILS # (AUTO) 0.1 K/uL (0-0.4); EOSINOPHILS % (AUTO) 1.5 % (0.0-4.0); HEMATOCRIT 31.8 % (36-48); HEMOGLOBIN 10.9 g/dL (12.0-16.0); LYMPHOCYTES % (AUTO) 16.9 % (20.5-51.1); MEAN CORPUSCULAR HEMOGLOBIN 32 pg (27-31); MEAN CORPUSCULAR HGB CONC 34 g/dL (33-37); MEAN CORPUSCULAR VOLUME 92.9 fL (80-94); MONOCYTES # (AUTO) 0.5 K/uL (0.8-1.0); MONOCYTES % (AUTO) 7.7 % (1.7-9.3); NEUTROPHILS # (AUTO) 4.4 K/uL (1.8-7.7); NEUTROPHILS % (AUTO) 73.5 % (42.2-75.2); PLATELET COUNT (AUTO) 474 K/uL (140-450); RED BLOOD CELL COUNT(AUTO) 3.43 MIL/uL (4.20-5.40); RED CELL DISTRIBUTION WIDTH 14.6 % (11.6-13.7)
[2018-03-15 23:31] LABS: ALBUMIN 3.2 g/dL (3.4-5.0); ASPARTATE AMINOTRANSFERASE 13 U/L (15-37); CHLORIDE 95 mmol/L (98-107); GLUCOSE 129 mg/dL (74-106); SODIUM SERUM 127 mmol/L (136-145); TOTAL BILIRUBIN 0.2 mg/dL (0.0-1.0); UREA NITROGEN, BLOOD 15 mg/dL (7-18)
[2018-03-15 23:32] LABS: CREATININE 0.2 mg/dL (0.6-1.3)
[2018-03-15 23:33] LABS: PROTHROMBIN TIME 9.6 secs (10.8-13.4)
[2018-03-15] MEDS ORDERED: CLINDAMYCIN 600 MG in DEXTROSE 5% 50 ML IV ONE (23:55)
[2018-03-16] MEDS ORDERED: ACETAMINOPHEN 325 MG TAB PO PRN (00:10)
[2018-03-16] MEDS ORDERED: CLINDAMYCIN 600 MG/4 ML VIAL ONE ×2 (00:10→04:36)
[2018-03-16] MEDS ORDERED: ONDANSETRON 4 MG/2 ML VIAL IVP PRN (00:10)
[2018-03-16] MEDS ORDERED: HYDROcodone/APAP 7.5/325 MG 1 TAB PO PRN (00:10)
--- NOTE | 2018-03-16 00:10 | NUR ---
PT LYING IN BED. VITALS STABLE.
--- NOTE | 2018-03-16 00:20 | NUR ---
electromyographic technician at bedside.
[2018-03-16 00:44] LABS: CHOL/HDL RATIO 2.6 (1-4.5); FREE T4 (FREE THYROXINE) 1.36 ng/dL (0.76-1.46); MAGNESIUM 2.1 mg/dL (1.8-2.4); THYROID STIMULATING HORMONE 4.02 uIU/mL (0.34-3.74)
--- NOTE | 2018-03-16 00:48 | NUR ---
Pt report given to JAYLEN RENNERAUTO AIR CONDITIONING INSTALLER. Transfer of care at this time. VITALS STABLE UPON TRANSFER TO FLOOR.
--- NOTE | 2018-03-16 00:48 | NUR ---
Patient will be admitted to care of DR. SAMAYOA. Admited to TELELMETRY. Will go to room 121 B. Belongings list completed. Report to JAYLEN RENNER.
[2018-03-16 01:00] VITALS: BP 129/96
--- NOTE | 2018-03-16 01:00 | NUR ---
Admitted from ED, with chief complaint of PER REPORT, LEFT ELBOW CELLULITIS. Pt is 77 y/o ,Female, Alert, Awake but Confused per ZEKE Bhatia, Cymraes-speaking only. Initial assessment done. Pictures taken and documented. Vital signs checked. Pt yelling calling names. Pt oriented to room, time, place, procedures, ID bracelet on. Belongings list checked. MRSA swab collected. Safety reinforced. Pt repositioned for comfort.
[2018-03-16 01:04] LABS: APPEARANCE,URINE CLEAR (CLEAR); BILIRUBIN,URINE NEGATIVE (NEGATIVE); BLOOD, URINE NEGATIVE (NEGATIVE); LEUKOCYTE ESTERASE ,URINE NEGATIVE (NEGATIVE); NITRITE, URINE NEGATIVE (NEGATIVE); UGLUCOSE NEGATIVE (NEGATIVE)
[2018-03-16 01:13] LABS: COLOR,URINE STRAW (YELLOW)
[2018-03-16 01:17] LABS: RBC,URINE NONE SEEN /HPF (0-5); WBC,URINE 0-5 (RARE) /HPF (0-5)
[2018-03-16] MEDS ORDERED: DEXTROSE 50% 50 ML SYR IVP PRN (01:20)
[2018-03-16] MEDS ORDERED: INSULIN LISPRO SLIDING SCALE 100 UNITS/ML VIAL SUBQ PRN (01:20)
--- NOTE | 2018-03-16 02:30 | NUR ---
PT BEEN MOANING AND CALLING NAMES. PT ENCOURAGED TO SLEEP. SAFETY REINFORCED.
[2018-03-16 04:00] VITALS: BP 163/71
--- NOTE | 2018-03-16 04:10 | NUR ---
SEEN PT ASLEEP. VITAL SIGNS CHECKED.
--- NOTE | 2018-03-16 04:45 | NUR ---
SEEN PT ASLEEP. IV ATB GIVEN ORDERED. PT REPOSITIONED FOR COMFORT.
[2018-03-16] MEDS ORDERED: CLINDAMYCIN 600 MG in DEXTROSE 5% 50 ML IV SCH (05:00)
--- NOTE | 2018-03-16 06:00 | NUR ---
BLOOD SUGAR CHECKED:100.
--- NOTE | 2018-03-16 06:18 | NUR ---
PATIENT HAS BEEN SCREENED AND CATEGORIZED MODERATE NUTRITION RISK. PATIENT WILL BE SEEN WITHIN 3-5 DAYS OF ADMISSION. 03/18/18-03/20/18 MARGARET MENON MS, RDN
[2018-03-16] MEDS: BLOOD GLUCOSE MONITORING 1 DEV DEV FS SCH ×4 (07:07→21:00)
--- NOTE | 2018-03-16 07:30 | NUR ---
PT REPORT GIVEN TO DAYSHIFT NURSE.
--- NOTE | 2018-03-16 07:31 | NUR ---
RECEIVED REPORT FROM LIFE SKILLS WORKER RN. PATIENT IS AAOX1, HAS NO SIGNS AND SYMPTOMS OF ACUTE DISTRESS NOTED AT THIS TIME. HAS IV ON THE RIGHT HAND 20G, INFUSING NS AT 10ML/HR. SITE IS CLEAN, DRY, PATENT AND INTACT. PATIENT IS CONTRACTED ON BOTH ARMS AND LEGS WITH FOOT DROP. DISCUSSED PLAN OF CARE TO PATIENT BUT REINFORCEMENT WAS NEEDED. BED IN LOWEST POSITION, SIDE RAILS UP X2, CALL LIGHT WITHIN REACH. WILL CONTINUE TO MONITOR.
[2018-03-16 08:00] VITALS: BP 135/44
[2018-03-16 08:46] LABS: BASOPHILS % (AUTO) 0.4 % (0.0-2.0); EOSINOPHILS % (AUTO) 0.7 % (0.0-4.0); HEMATOCRIT 28.9 % (36-48); HEMOGLOBIN 9.9 g/dL (12.0-16.0); LYMPHOCYTES # (AUTO) 0.7 K/uL (2.5-16.5); LYMPHOCYTES % (AUTO) 11.4 % (20.5-51.1); MEAN CORPUSCULAR HEMOGLOBIN 32 pg (27-31); MEAN CORPUSCULAR HGB CONC 34 g/dL (33-37); MEAN CORPUSCULAR VOLUME 92.9 fL (80-94); MONOCYTES # (AUTO) 0.4 K/uL (0.8-1.0); NEUTROPHILS # (AUTO) 4.8 K/uL (1.8-7.7); NEUTROPHILS % (AUTO) 81.5 % (42.2-75.2); PLATELET COUNT (AUTO) 384 K/uL (140-450); RED BLOOD CELL COUNT(AUTO) 3.11 MIL/uL (4.20-5.40); RED CELL DISTRIBUTION WIDTH 14.7 % (11.6-13.7); WHITE BLOOD COUNT (AUTO) 5.9 K/uL (4.8-10.8)
[2018-03-16 09:08] LABS: ANION GAP 7.6 (8-16); CARBON DIOXIDE 26.3 mmol/L (21-32); CHLORIDE 100 mmol/L (98-107); CREATININE 0.3 mg/dL (0.6-1.3); GLUCOSE 115 mg/dL (74-106); POTASSIUM 3.9 mmol/L (3.5-5.1); SODIUM SERUM 130 mmol/L (136-145); UREA NITROGEN, BLOOD 11 mg/dL (7-18)
[2018-03-16 09:13] LABS: PHOSPHORUS 3.2 mg/dL (2.5-4.9)
[2018-03-16] MEDS: ASPIRIN 81 MG TAB.CHEW PO SCH (09:51)
[2018-03-16] MEDS: GEMFIBROZIL 600 MG TAB PO SCH ×2 (09:51→20:41)
[2018-03-16] MEDS: LOSARTAN 50 MG TAB PO SCH (09:51)
[2018-03-16] MEDS: HYDROCHLOROTHIAZIDE 25 MG TAB PO SCH (09:52)
--- NOTE | 2018-03-16 09:55 | NUR ---
ADMINISTERED MORNING MEDICATIONS. PATIENT TOLERATED WELL. WILL CONTINUE TO MONITOR.
[2018-03-16] MEDS: DOCUSATE SODIUM 100 MG GELCAP PO SCH ×2 (10:10→20:41)
--- NOTE | 2018-03-16 11:30 | NUR ---
BLOOD SUGAR WAS 146, NO INSULIN COVERAGE NEEDED AT THIS TIME.
[2018-03-16 12:00] VITALS: BP 161/66
[2018-03-16] MEDS: CLINDAMYCIN PHOS 600MG/D5W PM 50 ML IV SCH ×2 (12:48→20:41)
--- NOTE | 2018-03-16 13:50 | NUR ---
RESTING IN BED. NO SIGNS AND SYMPTOMS OF ACUTE DISTRESS NOTED AT THIS TIME. WILL CONTINUE TO MONITOR.
[2018-03-16 16:00] VITALS: BP 154/82
[2018-03-16] MEDS: MONTELUKAST SODIUM 10 MG TAB PO SCH (16:47)
--- NOTE | 2018-03-16 19:10 | NUR ---
ENDORSED PATIENT TO BARGEMAN RN FOR CONTINUITY OF CARE. PATIENT IN STABLE CONDITION.
--- NOTE | 2018-03-16 19:12 | NUR ---
RECEIVED REPORT FROM DAY SHIFT NURSE. AAOX1. NO S/S RESP DISTRESS OR PAIN NOTED. IV TO RIGHT HAND #20G, PATENT AND INTACT. PT HAS BILATERAL UPPER EXTREMITIES CONTRACTION. DISCUSSED PLAN OF CARE, REINFORCEMENT NEEDED. SAFETY PRECAUTION IN PLACE. CALL LIGHT WITHIN REACH.
[2018-03-16 20:00] VITALS: BP 152/78
--- NOTE | 2018-03-16 21:30 | NUR ---
PT IN BED. LINEN CHANGED. PT WAS TURNED AND REPOSITIONED Q2HRS. PT KEPT DRY AND COMFORTABLE.
--- NOTE | 2018-03-16 23:05 | NUR ---
PT'S HAND CONTRACTED. PT HAS OPEN WOUND ON LEFT THUMB. DR. HATFIELD MADE AWARE AND SHE WILL ORDER WOUND EVAL. PICTURE TAKEN. DRESSING APPLIED.
[2018-03-17] VITALS (7 sets, daily range): BP systolic 95–170; BP diastolic 42–75
--- NOTE | 2018-03-17 01:30 | NUR ---
PT SLEEPING, EASILY AROUSABLE. NO S/S OF PAIN. NO S/S OF RESP DISTRESS.
--- NOTE | 2018-03-17 03:45 | NUR ---
PT SLEEPING. RESP EVEN AND UNLABORED. NO S/S OF PAIN.
[2018-03-17] MEDS: CLINDAMYCIN PHOS 600MG/D5W PM 50 ML IV SCH ×3 (05:21→20:23)
--- NOTE | 2018-03-17 05:30 | NUR ---
PT WAS CLEANED AND CHANGED BY BASS GUITAR TEACHER. NO DISTRESS NOTED. PT KEPT DRY AND COMFORTABLE.
--- NOTE | 2018-03-17 06:48 | NUR ---
BLOOD SUGAR CHECKED 101. NO INSULIN COVERAGE NEEDED.
--- NOTE | 2018-03-17 07:05 | NUR ---
ENDORSED PT TO DAY SHIFT NURSE. PT IN STABLE CONDITION.
--- NOTE | 2018-03-17 07:06 | NUR ---
RECEIVED REPORT FROM DIRECTOR OF NURSING RN. PATIENT IS AAOX1, HAS NO SIGNS AND SYMPTOMS OF ACUTE DISTRESS NOTED AT THIS TIME. HAS IV ON THE RIGHT HAND 20G, INFUSING NS AT 10ML/HR. SITE IS CLEAN, DRY, PATENT AND INTACT. PATIENT IS CONTRACTED ON BOTH ARMS AND LEGS WITH FOOT DROP. DISCUSSED PLAN OF CARE TO PATIENT BUT REINFORCEMENT WAS NEEDED. BED IN LOWEST POSITION, SIDE RAILS UP X2, CALL LIGHT WITHIN REACH. WILL CONTINUE TO MONITOR.
[2018-03-17] MEDS: BLOOD GLUCOSE MONITORING 1 DEV DEV FS SCH ×4 (07:25→20:34)
[2018-03-17 07:33] LABS: BASOPHILS # (AUTO) 0.1 K/uL (0.00-0.22); BASOPHILS % (AUTO) 1.4 % (0.0-2.0); EOSINOPHILS # (AUTO) 0.1 K/uL (0-0.4); HEMATOCRIT 28.9 % (36-48); LYMPHOCYTES # (AUTO) 0.9 K/uL (2.5-16.5); LYMPHOCYTES % (AUTO) 23.7 % (20.5-51.1); MEAN CORPUSCULAR HEMOGLOBIN 32 pg (27-31); MEAN CORPUSCULAR HGB CONC 35 g/dL (33-37); MEAN CORPUSCULAR VOLUME 93.1 fL (80-94); MONOCYTES # (AUTO) 0.3 K/uL (0.8-1.0); MONOCYTES % (AUTO) 8.2 % (1.7-9.3); NEUTROPHILS # (AUTO) 2.4 K/uL (1.8-7.7); NEUTROPHILS % (AUTO) 63.7 % (42.2-75.2); PLATELET COUNT (AUTO) 396 K/uL (140-450); WHITE BLOOD COUNT (AUTO) 3.7 K/uL (4.8-10.8)
[2018-03-17 08:13] LABS: CARBON DIOXIDE 24.8 mmol/L (21-32); CHLORIDE 99 mmol/L (98-107); CREATININE 0.2 mg/dL (0.6-1.3); GLUCOSE 96 mg/dL (74-106); POTASSIUM 3.8 mmol/L (3.5-5.1); SODIUM SERUM 130 mmol/L (136-145); UREA NITROGEN, BLOOD 11 mg/dL (7-18)
[2018-03-17] MEDS: NACL 0.9% 1,000 ML IV SCH (08:57)
[2018-03-17] MEDS: GEMFIBROZIL 600 MG TAB PO SCH ×2 (08:57→20:22)
[2018-03-17] MEDS: DOCUSATE SODIUM 100 MG GELCAP PO SCH ×2 (08:58→20:22)
[2018-03-17] MEDS: LOSARTAN 50 MG TAB PO SCH (08:58)
[2018-03-17] MEDS: ASPIRIN 81 MG TAB.CHEW PO SCH (08:58)
[2018-03-17] MEDS: HYDROCHLOROTHIAZIDE 25 MG TAB PO SCH (08:59)
[2018-03-17 09:00] LABS: PHOSPHORUS 3.3 mg/dL (2.5-4.9)
[2018-03-17] MEDS ORDERED: LABETALOL 100 MG/20 ML VIAL IV SCH (12:05)
[2018-03-17] MEDS: MONTELUKAST SODIUM 10 MG TAB PO SCH (17:00)
--- NOTE | 2018-03-17 19:18 | NUR ---
ENDORSED PATIENT TO DIRECTOR OCCUPATIONAL RN FOR CONTINUITY OF CARE. PATIENT IN STABLE CONDITION.
--- NOTE | 2018-03-17 19:18 | NUR ---
RECEIVED FROM AM RN IN BED AWAKE AND BEING CLEANED AND TURNED BY CNAS TO SIDES. ABLE TO VERBALIZE SIMPLE NEEDS IN HUNGARIAN. CALL LIGHT WITH IN REACH. BED ALARM ON . NEEDS WILL BE ANTICIPATED AND MET. AFEBRILE. IVF SITE TO RIGHT HAND#20 . DX. LEFT ARM CELLULITIS.
--- NOTE | 2018-03-17 22:46 | NUR ---
PT. RE-CHECKED BLOOD PRESSURE. WNL. PT. SLEEPING AFTER CNAS CLEANED HER UP . TURNED TO SIDES Q 2H. NEEDS ANTICIPATED AND MET.
[2018-03-18 00:38] VITALS: BP 109/46
[2018-03-18] MEDS: NACL 0.9% 1,000 ML IV SCH ×2 (00:41→12:51)
--- NOTE | 2018-03-18 05:04 | NUR ---
SLEEPING WELL THIS SHIFT. NO RESTLESSNESS . NEEDS ANTICIPATED AND MET. TOTAL CARE. TURNED TO SIDES Q 2H.
[2018-03-18] MEDS: CLINDAMYCIN PHOS 600MG/D5W PM 50 ML IV SCH ×2 (05:25→13:04)
[2018-03-18] MEDS: BLOOD GLUCOSE MONITORING 1 DEV DEV FS SCH ×2 (05:36→12:27)
[2018-03-18 06:36] LABS: BASOPHILS % (AUTO) 0.4 % (0.0-2.0); EOSINOPHILS # (AUTO) 0.1 K/uL (0-0.4); HEMATOCRIT 30.1 % (36-48); HEMOGLOBIN 10.5 g/dL (12.0-16.0); LYMPHOCYTES # (AUTO) 0.9 K/uL (2.5-16.5); LYMPHOCYTES % (AUTO) 21.7 % (20.5-51.1); MEAN CORPUSCULAR HEMOGLOBIN 32 pg (27-31); MEAN CORPUSCULAR HGB CONC 35 g/dL (33-37); MEAN CORPUSCULAR VOLUME 92.5 fL (80-94); MONOCYTES # (AUTO) 0.4 K/uL (0.8-1.0); MONOCYTES % (AUTO) 10.5 % (1.7-9.3); NEUTROPHILS # (AUTO) 2.7 K/uL (1.8-7.7); NEUTROPHILS % (AUTO) 64.4 % (42.2-75.2); PLATELET COUNT (AUTO) 367 K/uL (140-450); RED BLOOD CELL COUNT(AUTO) 3.26 MIL/uL (4.20-5.40); RED CELL DISTRIBUTION WIDTH 14.7 % (11.6-13.7); WHITE BLOOD COUNT (AUTO) 4.1 K/uL (4.8-10.8)
[2018-03-18 06:44] LABS: ANION GAP 7.3 (8-16); CHLORIDE 102 mmol/L (98-107); GLUCOSE 96 mg/dL (74-106); POTASSIUM 4.3 mmol/L (3.5-5.1); SODIUM SERUM 131 mmol/L (136-145); UREA NITROGEN, BLOOD 8 mg/dL (7-18)
[2018-03-18 07:02] LABS: CREATININE 0.2 mg/dL (0.6-1.3)
--- NOTE | 2018-03-18 07:02 | NUR ---
CALLED RESIDENT MD AND INFORMED HIM OF CREATININE 0.2 . NO FURTHER ORDERS.
--- NOTE | 2018-03-18 07:28 | NUR ---
ENDORSED TO THE NEXT RN FOR CONTINUITY OF CARE.
--- NOTE | 2018-03-18 07:29 | NUR ---
RECEIVED REPORT FROM THE SUSTAINMENT LOGISTICS ANALYST NURSE AT BEDSIDE FOR CONTINUITY OF CARE. PT IS AWAKE AND ORIENTED, KYRGYZ SPEAKING. PT IS BEDBOUND. SKIN-L ARM SWELLING, OLD SACRAL SCAR AND SMALL WOUND IN EACH HAND, UNABLE TO ASSESS D/T PT TIGHT GRASP. IV ON R HAND 2-G NS AT 70ML. PER SUSTAINMENT LOGISTICS ANALYST NURSE, PT SHOULD BE ON PUREE DIET, UNABLE TO CHEW REG DIET AND MEDS NEED TO BE CRUSHED. WE WILL SPEAK TO DR AND CHANGE. WILL CONTINUE TO MONITOR PT.
[2018-03-18 08:00] VITALS: BP 132/75
[2018-03-18] MEDS ORDERED: CLIN300C2 PO (08:57)
[2018-03-18] MEDS ORDERED: LACT10CA PO (08:58)
[2018-03-18] MEDS ORDERED: LACTOBACILLUS RHAMNOSUS GG 1 EACH CAP PO SCH ×2 (09:30)
[2018-03-18] MEDS: GEMFIBROZIL 600 MG TAB PO SCH (09:34)
[2018-03-18] MEDS: LOSARTAN 50 MG TAB PO SCH (09:34)
[2018-03-18] MEDS: DOCUSATE SODIUM 100 MG GELCAP PO SCH (09:34)
[2018-03-18] MEDS: HYDROCHLOROTHIAZIDE 25 MG TAB PO SCH (09:35)
[2018-03-18] MEDS: ASPIRIN 81 MG TAB.CHEW PO SCH (09:40)
--- NOTE | 2018-03-18 10:09 | NUR ---
WOUND CARE CONSULT DONE. DENTAL FRONT OFFICE ASSISTANT ASSISTING WOUND CARE NURSE. PT TOLERATING WELL. WILL CONTINUE TO MONITOR PT.
[2018-03-18] MEDS ORDERED: INTERDRY CLOTH TP SCH (10:15)
--- NOTE | 2018-03-18 10:30 | NUR ---
REASON FOR EVALUATION: LEFT ARM CELLULITIS SKIN ASSESSMENT DONE WITH THIS 77 Y/O FEMALE PT ADMITTED FROM [facility] TO [facility] WITH INITIAL DX LEFT ARM CELLULITIS. PAST MEDICAL HX INCLUDES HTN, DEMENTIA, DM CONTRACTURES UPPER ARMS. ALL ABOVE INFORMATION OBTAINED FROM ADMISSION H&P. LABS ARE WBC 4.1, H/H 10.5/30.1, GLUCOSE 96 AND ALBUMIN 3.2. PT IS TALKATIVE, SPEAK IN GERMAN. SKIN IS WARM AND DRY WITH SEVERE CONTRACTURES TO UPPER EXTREMITIES FROM SHOULDERS TO FINGERS, BLE NO HAIR GROWTH, NO EDEMA. DORSAL PEDAL PULSES PRESENT AND NORMAL. CAPILLARY REFILLED < 2 SEC. X 10 TOES. INCONTINENT OF BOWEL AND BLADDER. PLAN OF CARE DISCUSSED WITH PRIMARY RN. INTEGUMENTARY: -INTERTRIGO TO BILATERAL ARMPITS, REDNESS, SKIN INTACT -LEFT ELBOW FOSSA, ERYTHEMA WITH +1 EDEMA, REDNESS IS 10X5CM, SKIN INTACT. -LEFT FIRST PHALANGE JOINT AREA PRESSURE INJURY STAGE 1.5X1.5X0.1, WOUND BED IS MOIST AND CLEAN, 100% GRANULATING TISSUE WITH NO ODOR, ELIZABETH-WOUND SKIN INTACT, SURROUNDING REDNESS TO ENTIRE THUMB INDICATED FURTHER DAMAGE. -UPPER BACK DRY SKIN WITH MULTIPLE RASHES -OLD HEALED SCARS TO SACROCOCCYX, NO OPEN ACTIVE WOUND TO SACRALCOCCYX AREA, SKIN DRY, CLEAN AND INTACT. RECOMMENDATIONS: - INTERTRIGO TO BILATERAL ARMPITS CLEANSE WITH MILD SOAP AND WATER, PAT DRY AND APPLY INTERDRY CHANGE WEEKLY AND PRN IF SOILING. -APPLY VERSATEL DRESSING TO LEFT ELBOW FOSSA AND COVER WITH DRY DRESSING CHANGE WEEKLY AND PRN IF SOILING. -CLEANSE LEFT FIRST PHALANGE JOINT AREA WOUND WITH NS. PAT DRY APPLY HYDROGEL AND COVER WITH DRY DRESSING QD AND PRN IF SOILING. -APPLY HYDRAGUARD TO UPPER BACK DRY SKIN AND OLD HEALED SCARS TO SACROCOCCYX BIDWC -KEEP SKIN DRY AND CLEAN AT ALL TIMES, PLEASE CHECK Q2H AND PRN FOR INCONTINENCY OF BOWEL AND BLADDER. -PLEASE APPLY HAND ROLLS TO BILATERAL HANDS -OFFLOAD BILATERAL HEELS BY PLACING PILLOWS UNDER CALVES UNLESS OTHERWISE CONTRAINDICATED -PRESSURE REDISTRIBUTION SURFACE THERAPY -TURN AND REPOSITION Q2H, OFFLOAD SACRALCOCCYX AND BUTTOCKS BY TURNING RIGHT AND LEFT -CONTINUE TO FOLLOW RD RECOMMENDATIONS ALL ABOVE RECOMMENDATIONS DISCUSSED WITH PRIMARY RN. AND WILL FOLLOW UP PT Q7-10 DAYS. PLEASE CONTACT WOUND CARE NURSE FOR ANY QUESTION AND CHANGE OF WOUND CONDITION.
--- NOTE | 2018-03-18 11:00 | NUR ---
Automation Manager Note: I faxed patient's updated medical information to [facility]. Per geriatric case manager Lani, no isolation. Per Jose Martin from [facility] / , patient may return to room 106b anytime today, accepting physician is , geriatric case manager Lani aware.
--- NOTE | 2018-03-18 12:36 | NUR ---
PATIENT WILL GO BACK TO [facility] ROOM [address] UNDER [address] BREWER. I CALLED [facility] FOR TRANSPORT. THE RESERVATION NUMBER IS [id number] PHONE FOR [facility] FOR [facility] IS [phone]. I RECEIVED A CALL BACK FROM [facility] FOR [facility] TRANSPORT. [facility]. . THE PATIENT WILL BE PICKED UP BY [facility] AT BETWEEN 2:30 AND 2:34 P.M. I CALLED DEACON RENNER AND INFORMED HER.
--- NOTE | 2018-03-18 12:47 | NUR ---
CALLED [facility], SPOKE TO JUD LONG AND GAVE REPORT AT [phone]. PT IS TO GO TO 106B, FOLLOWED BY DR. BREWER. [facility] WILL BE HERE BETWEEN [phone]. THEY ARE AWARE. THEY WOULD LIKE RX FAXED OVER AT [phone]. WILL GET PT READY.
[2018-03-18] MEDS ORDERED: SKINTEGRITY HYDROGEL TP SCH (13:00)
[2018-03-18] MEDS ORDERED: HYDRAGUARD CREAM TP SCH (13:00)
--- NOTE | 2018-03-18 13:12 | NUR ---
ADMINISTERED CLINDAMYCIN AND SCHEDULED MEDS. PT TOLERATING WELL. WILL CONTINUE TO MONITOR PT.
--- NOTE | 2018-03-18 15:00 | NUR ---
IV REMOVED. PICTURE OF L THUMB TAKEN. ID BANDS REMOVED. PT IN CHANGED INTO HER TRANSPORT GOWN. ALL READY TO GO. DISCHARGE PACKET DONE AND HER COPY IS IN HER PERSONAL BAG. PT IS UNAWARE.
--- NOTE | 2018-03-18 15:20 | NUR ---
[facility] IS HERE. WHEELED HER OUT IN A GURNEY. PT IN STABLE CONDITION.
[2018-03-19 07:27] LABS: FOLIC ACID 5.3 ng/mL (>3.0)
--- NOTE | 2018-03-19 12:45 | NUR ---
CORRECTION TO DISCHARGE DISPOSITION. PATIENT DISCHARGE SHOULD BE 03 PATIENT DISCHARGED TO SNF WITH ASSISTED CARE. Addendum: 03/19/18 at 1246 by Rayna Gonzalez CM Amended: Links added. Addendum: 03/19/18 at 1250 by Rayna Gonzalez CM NOTE DISCHARGE DISPOSITION CODE IS 01 AND NOT 03
== END 2018-03-18 15:20 | DRG 603 ==
LOC: MED 21:55 → UNDOADMIN 03-16 00:06 → MMU 03-16 00:06 → MTU 03-16 00:06
PROVIDERS: ADMIT General Practice; ATTEND General Practice
DX: L03.114 Cellulitis of left upper limb (principal); E87.1 Hypo-osmolality and hyponatremia; I10 Essential (primary) hypertension; J44.9 Chronic obstructive pulmonary disease, unspecified; F03.90 Unspecified dementia, unspecified severity, without behavioral disturbance, psychotic disturbance, mood disturbance, and anxiety; M19.90 Unspecified osteoarthritis, unspecified site; I44.7 Left bundle-branch block, unspecified; E11.65 Type 2 diabetes mellitus with hyperglycemia; E78.5 Hyperlipidemia, unspecified; E02 Subclinical iodine-deficiency hypothyroidism; D50.9 Iron deficiency anemia, unspecified; M62.422 Contracture of muscle, left upper arm; M62.421 Contracture of muscle, right upper arm; Z79.82 Long term (current) use of aspirin; Z79.899 Other long term (current) drug therapy; Z79.84 Long term (current) use of oral hypoglycemic drugs
CPT/HCPCS: 36415; 71045; 80048; 80053; 81001; 82150; 82607; 82728; 82746; 82948; 83036; 83540; 83605; 83690; 83735; 83880; 84100; 84439; 84443; 84484; 85025; 85045; 85610; 87040; 87081; 87086; 93005; 96360; 99285; A6248; J1815; J3490; J7030; J7060; Q0092